=== PATIENT | female | born 1950 | race Caucasian/White ===

== ENCOUNTER 2019-10-07 10:07 | Outpatient (CLI) | payer OTHER ==
[2019-10-07 10:31] LABS: BASOPHILS % (AUTO) 0.6 %; EOSINOPHILS # (AUTO) 0.2 10^3/uL (0.0-0.7); EOSINOPHILS % (AUTO) 3.5 %; HGB - HEMOGLOBIN 13.8 g/dL (12.0-16.0); LYMPHOCYTES # (AUTO) 1.1 10^3/uL (1.5-3.5); LYMPHOCYTES % (AUTO) 21.1 %; MEAN CORPUSCULAR HEMOGLOBIN 29.4 pg (27.0-31.0); MEAN CORPUSCULAR VOLUME 88.9 fL (81.0-99.0); MEAN PLATELET VOLUME 9.1 fL (7.9-10.8); MONOCYTES # (AUTO) 0.4 10^3/uL (0.0-1.0); MONOCYTES % (AUTO) 8.4 %; NEUTROPHILS # (AUTO) 3.4 10^3/uL (1.5-6.6); NEUTROPHILS % (AUTO) 66.2 %; PLT - PLATELET COUNT 210 10^3/uL (130-450); RED CELL DISTRIBUTION WIDTH 12.9 % (12.0-15.0); WHITE BLOOD COUNT 5.1 x10^3/uL (4.8-10.8)
[2019-10-07 10:47] LABS: ALBUMIN 3.8 g/dL (3.2-5.5); ALBUMIN/GLOBULIN RATIO 1.1 (1.0-2.2); ALKALINE PHOSPHATASE 69 IU/L (42-121); ALT ALANINE AMINOTRANSFERASE 19 IU/L (10-60); AST ASPARTATE AMINOTRANSFERASE 20 IU/L (10-42); BILIRUBIN,TOTAL 0.9 mg/dL (0.2-1.0); BUN - BLOOD UREA NITROGEN 14 mg/dL (6-20); CALCIUM 8.8 mg/dL (8.5-10.3); CARBON DIOXIDE - CO2 26 mmol/L (21-32); CHLORIDE 105 mmol/L (101-111); CHOL/HDL RATIO 3.1 (<4.4); CHOLESTEROL 226 mg/dL; CREATININE 0.7 mg/dL (0.4-1.0); GLUCOSE 102 mg/dL (70-100); HDL CHOLESTEROL 74 mg/dL; LDL CHOLESTEROL,CALCULATED 133 mg/dL; LDL/HDL RATIO 1.8 (<4.4); SODIUM 139 mmol/L (135-145); TOTAL PROTEIN 7.4 g/dL (6.7-8.2); VLDL CHOLESTEROL 19 mg/dL
== END 2019-10-07 10:08 | disposition home or self-care (01) ==
LOC: LAB 10:07
PROVIDERS: ATTEND Nurse Practitioner
DX: Z13.220 Encounter for screening for lipoid disorders (principal); Z78.0 Asymptomatic menopausal state; G43.709 Chronic migraine without aura, not intractable, without status migrainosus; Z79.899 Other long term (current) drug therapy
CPT/HCPCS: 36415; 80053; 80061; 82306; 83721; 84443; 85025

== ENCOUNTER 2019-11-01 10:10 | Outpatient (CLI) | payer OTHER | END 2019-11-01 10:11 | disposition home or self-care (01) | LOC: DI 10:10 | PROVIDERS: ATTEND Nurse Practitioner | DX: I51.7 Cardiomegaly (principal); Z95.3 Presence of xenogenic heart valve | CPT/HCPCS: 93306 ==

== ENCOUNTER 2021-01-26 14:53 | Emergency (ER) | payer MEDICARE, OTHER ==
[2021-01-26 15:02] VITALS: BP 132/69
--- NOTE | 2021-01-26 15:40 | ED Physician Documentation ---
History of Present Illness - Stated complaint Stated Complaint: BUG BITE LT ARM - Chief complaint Chief Complaint: General - History obtained from History obtained from: Patient - History of Present Illness Timing: Yesterday - Additonal information Additional information: 70-year-old female reports that she was working in the garden yesterday when she came in she had a little bit of itching to the anterior surface of her left forearm. This worsened overnight and this morning she awoke with pain and chills. She is coming now with redness that is spreading up her forearm concerned about an infection. She did not have pain when this happened out in her garden and she does not think that this was a bee sting. Review of Systems Constitutional: reports: Chills. denies: Fever Nose: denies: Congestion Throat: denies: Sore throat Respiratory: denies: Cough GI: denies: Vomiting PD PAST MEDICAL HISTORY - Present Medications Home Medications: Ambulatory Orders Medication Instructions Recorded Confirmed Amox/Clav 875/125 [Augmentin] 1 each PO Q12H #20 tablet 01/26/21 - Allergies Allergies/Adverse Reactions: Allergies Allergy/AdvReac Type Severity Reaction Status Date / Time No Known Drug Allergies Allergy Verified 01/26/21 15:02 PD ED PE NORMAL - Vitals Vital signs reviewed: Yes (Hypertensive) - General General: Alert and oriented X 3, No acute distress, Well developed/nourished - HEENT HEENT: Atraumatic, PERRL, EOMI - Respiratory Respiratory: No respiratory distress - Derm Derm: Normal color, Warm and dry, No rash - Extremities Extremities: No deformity, No edema, Other (There is swelling point tenderness and erythema over the distal aspect of the left forearm or the dorsal surface. This is about 1 handbreadth up from the wrist. 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 I discussed with the patient the treatment of cellulitis with antibiotic and reasons to return should she have failure of oral outpatient antibiotic therapy. We will place patient on Augmentin and expect improvement. Departure - Departure Disposition: 01 Home, Self Care Clinical Impression: Cellulitis Qualifiers: Site of cellulitis: extremity Site of cellulitis of extremity: upper extremity Laterality: left Qualified Code(s): L03.114 - Cellulitis of left upper limb Instructions: ED Infec Skin Cellulitis Follow-Up: Felicitas Del Toro DO [Primary Care Provider] - Prescriptions: Amox/Clav 875/125 [Augmentin] 1 each PO Q12H #20 tablet
== END 2021-01-26 15:46 | disposition home or self-care (01) ==
LOC: ED 14:53
DX: L03.114 Cellulitis of left upper limb (principal)
CPT/HCPCS: 99282; 99284

== ENCOUNTER 2021-11-17 13:25 | Emergency (ER) | payer MEDICARE ==
[2021-11-17 13:34] VITALS: BP 137/85
--- NOTE | 2021-11-17 14:07 | ED Physician Documentation ---
PD HPI UPPER EXT INJURY - Stated complaint Stated Complaint: R HAND INJ - Chief complaint Chief Complaint: Trauma Ext - History obtained from History obtained from: Patient - History of Present Illness Location: Right, Hand, Finger Type of injury: Blunt / blow (playing with her husky dog and the dog butted head into her hand. Hand was flexed fingers and the impact was at the MCPs dorsally.) Where injury occurred: Home Timing - onset: Yesterday Timing - details: Abrupt onset, Still present (swelling is worsening) Improved by: Rest Worsened by: Moving, Palpating Associated symptoms: Swelling. No: Weakness, Numbness Similar symptoms before: Has not had sx before Review of Systems Skin: denies: Abrasion (s), Laceration (s) Neurologic: denies: Focal weakness, Numbness PD PAST MEDICAL HISTORY - Past Medical History Past Medical History: No - Present Medications Home Medications: Ambulatory Orders Medication Instructions Recorded Confirmed Amox/Clav 875/125 [Augmentin] 1 each PO Q12H #20 tablet 01/26/21 - Allergies Allergies/Adverse Reactions: Allergies Allergy/AdvReac Type Severity Reaction Status Date / Time No Known Drug Allergies Allergy Verified 11/17/21 13:34 - Social History Does the pt smoke?: No Smoking Status: Never smoker PD ED PE NORMAL - Vitals Vital signs reviewed: Yes - General General: Alert and oriented X 3, No acute distress, Well developed/nourished - Derm Derm: Normal color, Warm and dry - Extremities Extremities: Other (right hand with swelling and tenderness primarily at dorsal MCP index and middle fingers. No gross deformity. Mild arthritic changes at all finger joints. Some swelling ring finger and 2 rings are tight, appearing to be blocking return lymphatic flow. Rings removed with ring cutter by Tech. ) - Neuro Neuro: No motor deficit, No sensory deficit Results - Vitals Vitals: Vital Signs - 24 hr 11/17/21 13:29 Temperature 36.7 C Heart Rate 79 Respiratory 14 Rate Blood Pressure 137/85 H O2 Saturation 98 Oxygen O2 Source Room air - Rads (name of study) right hand Radiology: Prelim report reviewed (no fractures. Arthritic changes noted. ), See rad report PD MEDICAL DECISION MAKING - ED course Complexity details: considered differential (arthritic changes at knuckles (exam and xray) without fractures. Has swelling at MCP index and middle fingers, but also some swelling rigng finger so rings removed. ), d/w patient Departure - Departure Disposition: 01 Home, Self Care Clinical Impression: Finger sprain Qualifiers: Encounter type: initial encounter Finger: middle finger Sprain of finger site: metacarpophalangeal joint Laterality: right Qualified Code(s): S63.652A - Sprain of metacarpophalangeal joint of right middle finger, initial encounter Condition: Stable Record reviewed to determine appropriate education?: Yes Instructions: ED Sprain Finger Follow-Up: ODILON AGUERO DO [Primary Care Provider] - Comments: Your x-ray does not show any fractures. Ice elevate and rest the hand often. Use the finger splint to reduce motion and protect it. You could use some anti- inflammatory such as ibuprofen 600 mg 3 times daily with food. To that add Tylenol every 4-6 hours if needed for pain. I would anticipate improvement over the next several days to a week. This may take even 2 to 3 weeks to fully improve back to normal function. Recheck if not improving in that timeframe. Discharge Date/Time: 11/17/21 15:17
--- NOTE | 2021-11-17 14:14 | XRAY Report ---
PROCEDURE: Hand 3 View RT INDICATIONS: Injury to extremity TECHNIQUE: 3 views of the hand(s) acquired. COMPARISON: None FINDINGS: Bones: No fractures or dislocations. Osteoarthritic changes are noted throughout right hand and wris t joints particularly involving first and second CMC joints and scaphotrapezial joint. Radiolucencies involving second and third metacarpal heads are seen. No suspicious bony lesions. Soft tissues: No suspicious soft tissue calcifications. IMPRESSION: 1. No acute right hand fracture or dislocation. 2. Osteoarthritic changes are noted throughout right hand and wrist joints as above. Radiolucencies s een in second and third metacarpal heads which could represent erosion secondary to inflammatory arth ropathy suggest clinical correlation. Reviewed by: Steve Gomez MD on 11/17/2021 2:12 PM PDT Approved by: Steve Gomez MD on 11/17/2021 2:12 PM PDT Station ID: [id number]
== END 2021-11-17 15:17 | disposition home or self-care (01) ==
LOC: ED 13:25
DX: S63.652A Sprain of metacarpophalangeal joint of right middle finger, initial encounter (principal); W54.1XXA Struck by dog, initial encounter
CPT/HCPCS: 99282; 99283

== ENCOUNTER 2021-11-23 09:01 | Emergency (ER) | payer MEDICARE ==
[2021-11-23 09:35] LABS: BASOPHILS % (AUTO) 0.4 %; EOSINOPHILS # (AUTO) 0.2 10^3/uL (0.0-0.7); EOSINOPHILS % (AUTO) 2.9 %; HCT - HEMATOCRIT 46.1 % (37.0-47.0); HGB - HEMOGLOBIN 15.5 g/dL (12.0-16.0); LYMPHOCYTES # (AUTO) 1.5 10^3/uL (1.5-3.5); LYMPHOCYTES % (AUTO) 21.6 %; MEAN CORPUSCULAR HEMOGLOBIN 28.9 pg (27.0-31.0); MEAN CORPUSCULAR HGB CONC 33.6 g/dL (32.0-36.0); MONOCYTES # (AUTO) 0.7 10^3/uL (0.0-1.0); MONOCYTES % (AUTO) 9.6 %; NEUTROPHILS # (AUTO) 4.4 10^3/uL (1.5-6.6); NEUTROPHILS % (AUTO) 65.2 %; PLT - PLATELET COUNT 234 10^3/uL (130-450); RED BLOOD COUNT 5.36 10^6/uL (4.20-5.40); WHITE BLOOD COUNT 6.8 x10^3/uL (4.8-10.8)
[2021-11-23 09:38] LABS: BILIRUBIN,URINE NEGATIVE (NEGATIVE); GLUCOSE, URINE (UA) NEGATIVE (NEGATIVE); KETONES,URINE (UA) NEGATIVE (NEGATIVE); LEUKOCYTE ESTERASE, URINE NEGATIVE (NEGATIVE); NITRITE,URINE NEGATIVE (NEGATIVE); OCCULT BLOOD,URINE SMALL (NEGATIVE); PROTEIN,URINE NEGATIVE (NEGATIVE); UROBILINOGEN,URINE 0.2 (NORMAL) E.U./dL (NORMAL)
[2021-11-23 09:39] LABS: CLARITY,URINE CLEAR (CLEAR)
[2021-11-23 09:48] LABS: ALBUMIN 4.3 g/dL (3.2-5.5); ALBUMIN/GLOBULIN RATIO 1.2 (1.0-2.2); BILIRUBIN,TOTAL 0.6 mg/dL (0.2-1.0); CALCIUM 9.7 mg/dL (8.5-10.3); CREATININE 0.8 mg/dL (0.4-1.0); POTASSIUM 4.1 mmol/L (3.5-5.0); TOTAL PROTEIN 7.8 g/dL (6.7-8.2)
[2021-11-23 09:52] LABS: RBC,URINE 0-5 /HPF (0-5); SQUAMOUS EPITHELIAL CELL,UR FEW Squamous (<= Few); WBC,URINE 0-3 /HPF (0-5)
[2021-11-23 10:05] LABS: BACTERIA,URINE Few /HPF (None Seen)
[2021-11-23] MEDS ORDERED: HYDROmorphone 0.5 MG/0.5 ML SYRINGE IVP STA (10:56)
[2021-11-23] MEDS ORDERED: SODIUM CHLORIDE 0.9% 1,000 ML IV STA (10:56)
--- NOTE | 2021-11-23 11:45 | CT Report ---
PROCEDURE: Abdomen/Pelvis WO INDICATIONS: upper abdominal and back pain TECHNIQUE: Noncontrast 5 mm thick sections acquired from the diaphragms to the symphysis. 5 mm coronal and sagi ttal reformats were then performed. For radiation dose reduction, the following was used: automated exposure control, adjustment of mA and/or kV according to patient size. COMPARISON: None. FINDINGS: Image quality: Excellent. ABDOMEN: Lung bases: Lung bases are clear. Heart size is normal. Solid organs: Liver and spleen are normal in size. Gallbladder is unremarkable. Pancreas is normal in contours. No adrenal nodules. Kidneys are normal in size, without hydronephrosis or nephrolithi asis. 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 Peritoneum and bowel: Unenhanced bowel loops demonstrate normal wall thickness and caliber. No free fluid or air. Scattered colonic diverticula present. There is a very slight appearance of hazy mese nteric fat posterior to the splenic body at the level of the celiac axis and extending to the level o f the superior mesenteric artery. It is faint without focal mass or fluid. Adjacent structures demons trate no inflammatory change. Nodes and vessels: No retroperitoneal or mesenteric adenopathy by size criteria. Aorta and inferior vena cava are normal in caliber. Miscellaneous: No ventral hernias. PELVIS: Genitourinary: Bladder wall thickness is normal. Miscellaneous: No inguinal hernias or adenopathy. Bones: No suspicious bony lesions. No vertebral body compression fractures. IMPRESSION: Faint appearance of hazy mesenteric fat posterior to the pancreas as described above. This is overall nondescript and no priors are available for comparison. This could represent a focus of inflammation although there are no inflammatory changes of the adjacent organs. However, recommend interval follo w-up to document resolution as etiology such as malignancy including lymphoma can present as changes within the mesenteric fat. Reviewed by: Rosette Cole MD on 11/23/2021 11:44 AM PDT Approved by: Rosette Cole MD on 11/23/2021 11:44 AM PDT Station ID: [id number]
--- NOTE | 2021-11-23 12:12 | ED Physician Documentation ---
PD HPI ABD PAIN - Stated complaint Stated Complaint: ABD & BACK PAIN - Chief complaint Chief Complaint: Abd Pain - History obtained from History obtained from: Patient - Additional information Additional information: The patient comes to the emergency department chief complaint of upper abdominal pain and back pain at the same level that it been going on for about the last several days. She states that she has had a little bit of nausea and prior to that, has been having some acid reflux. She denies any vomiting. She has felt like she might been constipated a few days ago and took some stool softeners which did seem to help. Patient states the pain has been gradually worsening and that she has not had pain like this before. She denies any history of any abdominal surgeries. No family history of gallstones. No history of kidney stones. Patient states she has had some urinary frequency this morning, but this has resolved. The patient denies any dysuria or fevers. No chills. She s tates it was related back pain that was worse last night and that it kept her from sleeping quite a bit. She has a history of some back issues but in general is very active according to her partner, working in the yard and picking up heavy things without difficulty. Patient denies any recent injury. Review of Systems Ten Systems: 10 systems reviewed and negative Constitutional: reports: Reviewed and negative Eyes: reports: Reviewed and negative Ears: reports: Reviewed and negative Nose: reports: Reviewed and negative Throat: reports: Reviewed and negative Cardiac: reports: Reviewed and negative Respiratory: reports: Reviewed and negative GI: reports: Abdominal Pain, Nausea : reports: Reviewed and negative Skin: reports: Reviewed and negative Musculoskeletal: reports: Reviewed and negative Neurologic: reports: Reviewed and negative Psychiatric: reports: Reviewed and negative Endocrine: reports: Reviewed and negative Immunocompromised: reports: Reviewed and negative PD PAST MEDICAL HISTORY - Past Medical History Past Medical History: No Cardiovascular: Valve disorder Respiratory: None Neuro: None, Migraines Endocrine/Autoimmune: None GI: None DRAFTER CIVIL: None : None HEENT: None Psych: None Musculoskeletal: Osteoarthritis Derm: None - Past Surgical History Past Surgical History: Yes Cardiovascular: Valve replacement HEENT: Tonsil/Adenoidectomy - Present Medications Home Medications: Ambulatory Orders Medication Instructions Recorded Confirmed HYDROcod/ACETAM 5/325 [[place] 5/325] 1 - 2 tablet PO Q6H PRN #10 tablet 11/23/21 Ondansetron Odt [Zofran] 4 mg TL Q6H PRN #10 tablet 11/23/21 Sumatriptan Succinate [Imitrex] 100 mg ORAL DAILY PRN 11/23/21 11/23/21 - Allergies Allergies/Adverse Reactions: Allergies Allergy/AdvReac Type Severity Reaction Status Date / Time No Known Drug Allergies Allergy Verified 11/23/21 09:14 - Social History Does the pt smoke?: No Smoking Status: Former smoker Does the pt drink ETOH?: Yes Does the pt have substance abuse?: No - Immunizations Immunizations are current?: Yes PD ED PE NORMAL - Vitals Vital signs reviewed: Yes - General General: Alert and oriented X 3, No acute distress, Well developed/nourished - HEENT HEENT: Atraumatic, PERRL, EOMI, Moist mucous membranes - Neck Neck: Supple, no meningeal sign - Cardiac Cardiac: RRR, No murmur, Strong equal pulses - Respiratory Respiratory: No respiratory distress, Clear bilaterally - Abdomen Abdomen: Soft, Non distended, Other (Mild tenderness, epigastric region and less so across bilateral upper quadrants. 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, Normal speech - Psych Psych: Normal mood, Normal affect Results - Vitals Vitals: Vital Signs - 24 hr 11/23/21 11/23/21 11/23/21 09:15 09:36 10:56 Temperature 36.7 C Heart Rate 80 69 65 Respiratory 18 16 16 Rate Blood Pressure 149/91 H 146/88 H 171/93 H O2 Saturation 98 98 98 11/23/21 11/23/21 11:41 12:47 Temperature 36.1 C L Heart Rate 61 68 Respiratory 16 16 Rate Blood Pressure 174/97 H 142/94 H O2 Saturation 100 100 Oxygen O2 Source Room air - Labs Labs: Laboratory Tests 11/23/21 11/23/21 11/23/21 09:30 09:30 09:30 WBC 6.8 RBC 5.36 Hgb 15.5 Hct 46.1 MCV 86.0 MCH 28.9 MCHC 33.6 RDW 13.0 Plt Count 234 MPV 9.0 Neut # (Auto) 4.4 Lymph # (Auto) 1.5 [place] # (Auto) 0.7 Eos # (Auto) 0.2 Baso # (Auto) 0.0 Absolute Nucleated RBC 0.00 Nucleated RBC % 0.0 Sodium 141 Potassium 4.1 Chloride 102 Carbon Dioxide 29 Anion Gap 10.0 BUN 16 Creatinine 0.8 Estimated GFR (MDRD) 71 L Glucose 103 H Calcium 9.7 Total Bilirubin 0.6 AST 19 ALT 15 Alkaline Phosphatase 69 Total Protein 7.8 Albumin 4.3 Globulin 3.5 Albumin/Globulin Ratio 1.2 Lipase 35 Urine Color YELLOW Urine Clarity CLEAR Urine pH 6.0 Ur Specific [place] 1.010 Urine Protein NEGATIVE Urine Glucose (UA) NEGATIVE Urine Ketones NEGATIVE Urine Occult Blood SMALL H Urine Nitrite NEGATIVE Urine Bilirubin NEGATIVE Urine Urobilinogen 0.2 (NORMAL) Ur Leukocyte Esterase NEGATIVE Urine RBC 0-5 Urine WBC 0-3 Ur Squamous Epith Cells FEW Squamous Urine Bacteria Few Ur Microscopic Review INDICATED Urine Culture Comments NOT INDICATED - Rads (name of study) CT abd/pelvis Radiology: Final report received, EMP read indepedently, See rad report (Faint stranding behind pancreas; otherwise negative.) PD MEDICAL DECISION MAKING - ED course Complexity details: reviewed results, re-evaluated patient, considered differential, d/w patient ED course: The patient was worked up with laboratory studies and urinalysis, which were unremarkable, other than a slight amount of hematuria. Her CT scan showed a faint, small area of fat stranding posterior to the pancreas; however, no inflammatory changes were noted of any of the adjacent structures or other organs. No mass or fluid collection were noted either. No obvious enlarged lymph nodes. Remainder of CT scan was entirely normal. The patient's lipase and white blood cell count were both normal. I discussed the CT findings with the patient and gave her a copy of the CT report. The findings were noted by radiologist to be vague and nonspecific, though the possibility of malignancy within the mesentery could not be ruled out. I discussed with the patient that in general, it would be unlikely for a malignancy with such small manifestations to be causing the discomfort. Additionally, without any other findings in any of the other structures of the abdomen and pelvis, malignancy is also less likely. However, we have discussed the radiologist recommendation to have a repeat imaging On an interval basis. I have advised the patient that if she has not noticed significant improvement in her symptoms in the next week, to set up follow-up with her primary care physician to discuss both repeat imaging with regard to the stranding, as well as to discuss the possibility of endoscopy. The patient is agreeable. I have treated her symptomatically in the emergency department and will also give her symptomatic management at home. We have discussed the usual indications for return. Departure - Departure Disposition: Home, Self Care Clinical Impression: Abdominal pain Qualifiers: Abdominal location: upper abdomen, unspecified Qualified Code(s): R10.10 - Upper abdominal pain, unspecified Condition: Stable Instructions: ED Abdominal Pain Female Non-Specific Abdominal Pain Prescriptions: HYDROcod/ACETAM 5/325 [[place] 5/325] 1 - 2 tablet PO Q6H PRN #10 tablet PRN Reason: Pain Ondansetron Odt [Zofran] 4 mg TL Q6H PRN #10 tablet PRN Reason: Nausea / Vomiting Comments: Your labs look great. Your CT scan shows a small area of inflammation behind your pancreas, but not involving any of the organs specifically. This is a very nonspecific finding, but does correspond to where you are having the discomfort . It is most likely that this is a benign process and will resolve on its own; however, it is important to follow-up with your primary doctor for reevaluation and possible repeat imaging, especially if symptoms persist for more than the next week, to reevaluate the area. There is a very small possibility of the presence of a more serious condition, such as a cancer. However, in general, cancers that are advanced enough to cause pain will generally demonstrate much more widespread findings on imaging. You have been given a copy of the CT report which details the finding. You may take the nausea and pain medication prescribed, as needed. Your prescription has been electronically transmitted to [facility] in [place]. Discharge Date/Time: 11/23/21 12:48
[2021-11-23 12:48] VITALS: BP 142/94
== END 2021-11-23 12:48 | disposition home or self-care (01) ==
LOC: ED 09:01
DX: R10.10 Upper abdominal pain, unspecified (principal); R11.0 Nausea; Z87.891 Personal history of nicotine dependence
CPT/HCPCS: 36415; 74176; 80053; 81001; 83690; 85025; 96361; 96374; 99282; 99284; J1170; 81003; 87086

== ENCOUNTER 2023-07-15 08:00 | Outpatient (CLI) | payer MEDICARE ==
--- NOTE | 2023-07-15 13:49 | XRAY Report ---
PROCEDURE: Chest 2V INDICATIONS: CHEST CONGESTION TECHNIQUE: 2 views of the chest were acquired. COMPARISON: None. FINDINGS: Surgical changes and devices: Sternotomy wires, mediastinal clips, and an aortic valve can be seen. Lungs and pleura: No pleural effusions or pneumothorax. Lungs are clear. Mediastinum: The aorta is prominent and tortuous. The cardiac contours are within normal limits. Bones and chest wall: No suspicious bony lesions. Age-appropriate degenerative changes are seen. Overlying soft tissues appear unremarkable. IMPRESSION: No acute cardiopulmonary process. No focal infiltrates are seen. Postoperative and degenerative changes are seen. Reviewed by: Paul Hanson MD on 07/15/2023 12:48 PM [facility] Approved by: Paul Hanson MD on 07/15/2023 12:48 PM [facility] Station ID: [id number]
== END 2023-07-15 23:59 | disposition home or self-care (01) ==
LOC: DI.S 08:00
PROVIDERS: ATTEND Physician Assistant Medical
DX: R09.89 Other specified symptoms and signs involving the circulatory and respiratory systems (principal)